=== PATIENT | male | born 1985 | race Caucasian/White ===

== ENCOUNTER 2019-09-19 11:14 | Emergency (ER) | payer BC, SELFPAY ==
--- NOTE | ~2019-09-19 | CT_ITS ---
EXAMINATION: CT abdomen pelvis wo con DATE: 09/19/2019 12:39 INDICATION: Left flank pain TECHNIQUE: Computed tomography (CT) of the abdomen and pelvis was performed without intravenous contr ast. The dose-length product (DLP) was 327.57 mGy-cm. Automated exposure control and iterative recons truction technique were employed. COMPARISON: None FINDINGS: The lung bases are clear. The heart size is normal. The gallbladder is surgically absent. T he liver, spleen, pancreas, and adrenal glands are normal. The right kidney is unremarkable. There is a 6 mm stone of the left proximal ureter which causes mild left hydronephrosis. A 3 mm nonobstructin g stone is present in the lower pole of the left kidney. There is a 1.2 cm exophytic cyst of the left kidney lower pole. No pathologically enlarged abdominal or pelvic lymph nodes are identified. There is no free intraperitoneal gas or evidence of bowel obstruction. The appendix is normal. There is a f at-containing umbilical hernia. IMPRESSION: 1. 6 mm stone in the left proximal ureter causing mild hydronephrosis. Consider KUB for treatment macho nning purposes. 2. Nonobstructing left nephrolithiasis. Reviewed, dictated and finalized at location B. IMPRESSION: 1. 6 mm stone in the left proximal ureter causing mild hydronephrosis. Consider KUB for treatment planning purposes. 2. Nonobstructing left nephrolithiasis.
--- NOTE | ~2019-09-19 | XR_ITS ---
EXAMINATION: XR abdomen/kub 1V INDICATION: Left flank pain TECHNIQUE: Supine views of the abdomen were obtained on 2 radiographs. COMPARISON: CT from today FINDINGS: A 6 mm stone projects in the proximal left ureter between the left L2 and L3 transverse pro cesses. A 4 mm stone is noted in the lower pole of the left kidney. The bowel gas pattern is normal. Cholecystectomy clips are present in the right upper quadrant. IMPRESSION: 1. 6 mm stone of the proximal left ureter. 2. Left nephrolithiasis. Reviewed, dictated and finalized at location B.
[2019-09-19 11:20] VITALS: BP 143/98; PULSE 78; RESP 12; TEMP 36.8; O2SAT 100
--- NOTE | 2019-09-19 11:29 | ED.GENADULT ---
HPI - General Adult General Chief complaint: Abdominal Pain Stated complaint: abdominal pain Time Seen by Provider: 09/19/19 11:29 Source: patient Mode of arrival: ambulatory Limitations: no limitations History of Present Illness HPI narrative: Here for evaluation of left flank pain that started this am. He states it is a constant dull pain that flares up periodically. Denies fever, dysuria, or diarrhea. Had a bowel movement this am that was harder than usual but had normal bowel movement yesterday. No new medications, no history of bowel disease or kidney stones in him or any family member. Onset (ago): hour(s) Location: left (flank) Severity: mild Quality: aching Pain Consistency: constant Relieving factors: none Exacerbating factors: none Associated symptoms: denies other symptoms Related Data Allergies Allergy/AdvReac Type Severity Reaction Status Date / Time No Known Allergies Allergy Verified 09/14/19 08:47 Review of Systems Review of Systems: All systems reviewed & are unremarkable except as noted in HPI and below PMFSH Past Medical History Medical History History of hypertension Surgical History Surgical History History of cholecystectomy Social History Social History Smoking status: Current some day smoker Alcohol intake: current Substance use type: marijuana Gender identity (if verbalized by the patient): Male Exam Const: General: no acute distress and alert Orientation/consciousness: patient oriented x3 HENMT: Head: normal to inspection Eyes: Conjunctivae: conjunctivae normal Pupils: Equal, round and reactive pupils present Resp: Effort & Inspection: normal respiratory effort Auscultation: clear to auscultation bilaterally Cardio: Rate: regular rate Rhythm: regular rhythm GI: GI Palp: Yes Soft to palpation Percussion: Yes normal to percussion Auscultation: normal bowel sounds Back/Spine/Pelvis: Back: no CVA tenderness Skin: General skin exam: normal color Rashes: no rashes Neuro: General: patient oriented x3 and moves all extremities Course Course Emergency Course: Patient CT findings are consistent with left proximal renal calculus. Spoke with Dr. Esqueda from urology he will set up a telemedicine visit with the patient and determine if he needs to come in. Patient was given a [place] and states that the pain is much more manageable. Instructed to return emergency room should he have worsening pain or inability to urinate. He was given a strainer for his urine, instructions to stay well-hydrated. Patient is fine with the plan Vital Signs Vital signs: Vital Signs Temperature 36.8 C 09/19/19 11:20 Pulse Rate 78 09/19/19 11:20 Respiratory Rate 12 09/19/19 11:20 Blood Pressure 143/98 H 09/19/19 11:20 Pulse Oximetry 100 09/19/19 11:20 Temperature 36.8 C 09/19/19 11:20 Pulse Rate 78 09/19/19 11:20 Respiratory Rate 12 09/19/19 11:20 Blood Pressure 143/98 H 09/19/19 11:20 Pulse Oximetry 100 09/19/19 11:20 Medical Decision Making Medical Records Medical records reviewed: Yes I reviewed the patient's medical records. Vital Signs Vital Signs: Vital Signs Temperature 36.8 C 09/19/19 11:20 Pulse Rate 78 09/19/19 11:20 Respiratory Rate 12 09/19/19 11:20 Blood Pressure 143/98 H 09/19/19 11:20 Pulse Oximetry 100 09/19/19 11:20 Temperature 36.8 C 09/19/19 11:20 Pulse Rate 78 09/19/19 11:20 Respiratory Rate 12 09/19/19 11:20 Blood Pressure 143/98 H 09/19/19 11:20 Pulse Oximetry 100 09/19/19 11:20 Lab Data Lab results reviewed: Yes I reviewed the patient's lab results. Discharge Plan Discharge Clinical Impression: Kidney stone on left side Patient Disposition: Home, Self-Care Condition: Stable Instructions: Antibiotic Fo
[2019-09-19 11:54] LABS: Basophils Percent Auto 0.6 % (0.2-1.2); Eosinophils Percent Auto 0.8 % (0-4.4); Hematocrit 48.3 % (42.0-52.0); Hemoglobin 16.8 g/dL (14.0-18.0); Immature Granulocyte Absolute 0.01 K/mm3 (0.00-0.031); Immature Granulocyte Percent A 0.2 % (0-0.5); Lymphocytes Absolute Auto 1.39 K/mm3 (0.9-3.2); Lymphocytes Percent Auto 26.6 % (18.3-44.2); Mean Corpuscular HGB Conc 34.8 g/dl (32-36); Mean Corpuscular Volume 86.3 fl (80-100); Monocytes Absolute Auto 0.5 K/mm3 (0.1-0.6); Monocytes Percent Auto 8.6 % (2.6-8.5); Neutrophils Absolute Auto 3.3 K/mm3 (1.3-6.7); Neutrophils Percent Auto 63.2 % (45.5-73.1); Platelet Count Result 269 k/mm3 (150-375); Red Cell Distribution Width 12.4 % (11.5-14.5); White Blood Count 5.2 K/mm3 (4.5-10.0)
[2019-09-19 12:07] LABS: Alanine Aminotransferase 48 U/L (4-50); Albumin Level 4.9 g/dL (3.5-5.1); Alkaline Phosphatase 111 U/L (38-126); Aspartate Amino Transferase 43 U/L (17-59); Bilirubin,Total 0.6 mg/dL (0.2-1.3); Blood Urea Nitrogen 14 mg/dL (9-20); Calcium 9.6 mg/dL (8.4-10.2); Carbon Dioxide 28 mmol/L (22-30); Chloride 102 mmol/L (98-107); Estimated CRCL calculation 107 ml/min; Estimated Glomerular Filt Rate > 60; Glucose 107 mg/dL (75-110); Potassium 3.9 mmol/L (3.4-5.0); Sodium 137 mmol/L (137-145)
[2019-09-19 12:42] LABS: Add Urine Microscopic? YES; Appearance Urine Clear (Clear); Bacteria Urine Trace /hpf; Bilirubin Urine Negative (Negative); Blood Urine 3+ (Negative); Color Urine Yellow (Yellow); Glucose Urine UA Negative (Negative); Ketones Urine Negative (Negative); Leukocyte Esterase Ur Negative LEU/UL (Negative); Mucus Urine Few /lpf; Nitrate Urine Negative (Negative); Protein Urine 1+ mg/dL (Negative); RBC Urine >75 /hpf (0-2); Specific Grav Ur 1.023 (1.001-1.035); Urobilinogen Urine Negative mg/dL (<2.0)
[2019-09-19] MEDS: SODIUM CHLORIDE 0.9% IV 1,000 ML 999 ML IV CONT (13:09)
[2019-09-19] MEDS: TAMSULOSIN HCL 0.4 MG CAPSULE PO (13:27)
[2019-09-19 15:13] VITALS: BP 140/72; PULSE 70; RESP 16; O2SAT 99
== END 2019-09-19 15:31 | disposition home or self-care (01) ==
PROVIDERS: Physician Assistant; Emergency Provider Emergency Medicine; PCP Family Medicine
DX: N13.2 Hydronephrosis with renal and ureteral calculous obstruction (principal); I10 Essential (primary) hypertension; Z87.442 Personal history of urinary calculi; F17.200 Nicotine dependence, unspecified, uncomplicated
CPT/HCPCS: 36415; 74018; 74176; 80053; 81001; 85025; 96360; 99284; A9270; J7030

== ENCOUNTER 2019-09-23 00:32 | Day surgery (SDC) | payer BC, SELFPAY ==
--- NOTE | 2019-09-21 12:58 | PM.HPGS ---
History of Present Illness History of Present Illness Consent: Risks, benefits, and alternatives have been discussed and questions answered. Patient agrees to proceed with procedure. Chief complaint: Left Ureteral Stone Narrative: Sheldon Carlisle is a 33 year old male previously unknown to our practice who was in the emergency room earlier this week with acute left renal colic. CT imaging revealed a calcified, obstructing 6 millimeter left proximal ureteral stone. Patient has had nausea and vomiting but denies fevers chills or gross hematuria. After discussion of therapeutic options including, but additional interval to pass this stone, endoscopic manipulation versus ESWL, he has elected for the latter. He is aware of the risk of this procedure including, but not limited to, failure to completely fractured the stone with need for additional procedures, ureteral or renal injury. Review of Systems Constitutional: Constitutional: Denies chills, Denies fatigue, Denies fever(s) and Denies headache(s) Eyes: Eyes: Denies blurry vision ENT: Denies vertigo, Denies dizziness, Denies headache(s) and Denies sore throat Cardiovascular: Cardiovascular: Denies chest pain, Denies syncope, Denies lightheadedness, Denies palpitations, Denies dyspnea and Denies dyspnea on exertion Respiratory: Respiratory: Denies hemoptysis, Denies dyspnea and Denies dyspnea on exertion Gastrointestinal: Gastrointestinal: Denies melena, Denies bloating, Denies hematochezia, Denies change in bowel habits, Denies change in stool character, Denies constipation, Denies diarrhea and Denies vomiting Genitourinary: Genitourinary: Denies hematuria, Denies dysuria, Denies testicular pain, Denies urinary frequency, Denies urinary hesitancy and Denies urinary urgency Integumentary/Breasts: Skin/Breast: Denies pruritus, Denies lesions and Denies rash Neurologic: Denies confusion, Denies vertigo, Denies dizziness, Denies syncope and Denies headache(s) Psychiatric: Psychiatric: Denies anxiety, Denies change in appetite and Denies confusion Endocrine: Endocrine: Denies fatigue and Denies palpitations PMF Past Medical History Medical History History of hypertension Surgical History Surgical History History of cholecystectomy Social History Social History Smoking status: Current some day smoker Alcohol intake: current Substance use type: marijuana Gender identity (if verbalized by the patient): Male Meds Home Medications and Allergies Home Medications Medication Instructions Recorded Confirmed Type lorazepam 0.5 mg tablet 0.5 mg PO TID PRN #14 tablet 08/16/19 08/16/19 Rx omeprazole 40 mg capsule,delayed 40 mg PO DAILY #90 cap 08/16/19 08/16/19 Rx release hydrocodone-acetaminophen [[place]] 1 tablet PO Q4H PRN #10 tablet 09/19/19 Rx tamsulosin [Flomax] 0.4 mg PO DAILY #10 cap 09/19/19 Rx Allergies Allergy/AdvReac Type Severity Reaction Status Date / Time No Known Allergies Allergy Verified 09/14/19 08:47 Exam Const: General: healthy appearing, comfortable, no acute distress and well developed; No confusion Nutritional Appearance: well nourished Orientation/consciousness: patient oriented x3 and No confusion HENMT: Head: normocephalic and atraumatic Ears: external ears normal Face and sinus: normal facial exam Mouth: Yes lip normal Teeth and gingiva: dentition normal Eyes: General: appearance normal, both eyes and all related structures Alignment and Position: alignment normal Eyelids: eyelids normal Cornea: corneas normal Pupils: Equal, round and reactive pupils present EOM: EOMs intact bilaterally Neck: Neck: normal visual inspection, full ROM and no JVD Chest: Chest palpation & inspection: normal inspection of the chest Resp: Effort & Inspection: normal res
[2019-09-22 10:15] VITALS: BMI 35.3
--- NOTE | ~2019-09-23 | XR_ITS ---
EXAMINATION: XR abdomen/kub 1V INDICATION: Left sided urinary tract calculi TECHNIQUE: Supine views of the abdomen were obtained on 2 radiographs. COMPARISON: 09/19/2019 FINDINGS: A 7 mm stone projects in the left proximal ureter between the left L2 and L3 transverse pro cesses. There is a 4 mm stone of the left kidney lower pole. The bowel gas pattern is normal. The gal lbladder is surgically absent. IMPRESSION: 1. Stable 7 mm stone in the left proximal ureter. 2. Left nephrolithiasis. Reviewed, dictated and finalized at location B.
--- NOTE | 2019-09-23 10:19 | WPDHPUPDATE1 ---
History and Physical Update Update Date/Time: 09/23/19 10:19 History and Physical has been reviewed, including an updated exam of the patient. There are NO changes in the patient's condition. Risks, benefits, and alternatives have been discussed and questions answered. Patient agrees to proceed with procedure.
[2019-09-23 10:20] VITALS: BP 130/81; PULSE 85; RESP 12; TEMP 36.4; O2SAT 98
[2019-09-23] MEDS: LACTATED RINGERS 1,000 ML 30 ML IV CONT (10:40)
[2019-09-23 10:56] LABS: Partial Thromboplastin Time 25.2 SECONDS (22.3-36.8)
--- NOTE | 2019-09-23 11:42 | P.PNAN_ITS ---
Anes - Initial Pre Proc Eval Procedure: Operation Date: 09/23/19 11:30 Proposed Procedures p Left Ureteral Extracorporeal Shock Wave Lithotripsy - Urban Esqueda MD Date/Time: 09/23/19 11:42 Surgeon: Urban Esqueda MD Pre Op Diagnosis: Left Ureteral Stone Patient Data Age: 33 Gender: M Height: 5 ft 7 in Weight: 102.3 kg Last Vital Signs Temp 97.5 F L 09/23/19 10:20 Pulse 85 09/23/19 10:20 Resp 12 09/23/19 10:20 BP 130/81 09/23/19 10:20 Pulse Ox 98 09/23/19 10:20 Allergies Allergy/AdvReac Type Severity Reaction Status Date / Time No Known Allergies Allergy Verified 09/22/19 10:14 Home Medications Medication Instructions Recorded Confirmed Type lorazepam 0.5 mg tablet 0.5 mg PO TID PRN #14 tablet 08/16/19 09/22/19 Rx omeprazole 40 mg capsule,delayed 40 mg PO DAILY #90 cap 08/16/19 09/22/19 Rx release hydrocodone-acetaminophen [[place]] 1 tablet PO Q4H PRN #10 tablet 09/19/19 09/22/19 Rx tamsulosin [Flomax] 0.4 mg PO DAILY #10 cap 09/19/19 09/22/19 Rx Laboratory Tests 09/23/19 10:27 PT 13.0 Seconds Seconds (11.1-14.7) INR 1.0 APTT 25.2 SECONDS SECONDS (22.3-36.8) Patient hx anesthesia problems: none Family hx anesthesia problems: none COUNTS INCLUDE 234 BEDS AT THE [facility] Past Medical History Medical History (Updated 09/23/19 @ 11:39 by Zack Contreras MD) Anxiety History of hypertension Surgical History Surgical History History of cholecystectomy Social History Social History Smoking status: Current some day smoker Alcohol intake: current Substance use type: marijuana Gender identity (if verbalized by the patient): Male Anes - Eval Final PreProcedure Day of Procedure 09/23/19 11:42 Patient weight: obese Heart: regular rate and rhythm Lungs: clear to auscultation Airway: Mallampati scale class II Neurological: alert and oriented Last oral intake: >/= 8 hours ASA classification: II Emergent: no Anesthetic plan: proceed Anesthesia type and monitoring: general LMA and standard monitoring Informed Consent: The patient's anesthetic plan and its attendant risks and benefits were discussed with the patient/family/POA. Questions were solicited and answers provided to the satisfaction of the patient/family/POA.
--- NOTE | 2019-09-23 12:13 | WPDHPUPDATE1 ---
History and Physical Update Update Date/Time: 09/23/19 12:13 History and Physical has been reviewed, including an updated exam of the patient. There are NO changes in the patient's condition. Risks, benefits, and alternatives have been discussed and questions answered. Patient agrees to proceed with procedure.
--- NOTE | 2019-09-23 13:31 | PM.PROC ---
Procedure Note - Detailed Date of procedure: 09/23/19 Pre-op diagnosis: Left Ureteral Stone Post-op diagnosis: same Procedure performed: Left ESWL Description of procedure: The patient was brought to the operative suite where he was placed in the supine position on the [place]ornier lithotripsy table. The focal point of the lithotripter was placed at a 7mm left mid-ureteral calculus. A total of 3000 shocks were delivered at a power setting of 8. There appeared to be good fragmentation of the stone. The patient tolerated the procedure well and was taken to the recovery room in good condition. Anesthesia: GLMA Surgeon: Munir Artis MD Estimated blood loss (mL): 0 Drains: No Packing: No Pathology: none sent Complications: No immediate complications Condition: stable Disposition: PACU
[2019-09-23 14:10] VITALS: BP 130/77; PULSE 97; RESP 14; TEMP 36.4; O2SAT 98
[2019-09-23 14:25] VITALS: BP 122/74; PULSE 84; RESP 14; O2SAT 100
--- NOTE | 2019-09-23 14:34 | SUR.PHASEI ---
1430; PT C/O ANXIETY AND A HEADACHE. FENTANYL GIVEN IV
[2019-09-23 14:40] VITALS: BP 126/76; PULSE 84; RESP 16; O2SAT 95
--- NOTE | 2019-09-23 14:58 | SUR.PHASEI ---
1458; PT AWAKE AND ALERT. TALKATIVE. STATES HEADACHE AND ANXIETY MUCH BETTER NOW. READY TO GO HOME.
[2019-09-23 15:00] VITALS: BP 127/80; PULSE 84; RESP 16
[2019-09-23 15:30] VITALS: BP 122/75; PULSE 78; RESP 14
== END 2019-09-23 15:42 | disposition home or self-care (01) ==
PROVIDERS: PCP Family Medicine; Visit Provider Urology
PROC: (CPT 50590; principal; 2019-09-23 11:30)
DX: N20.1 Calculus of ureter (principal); I10 Essential (primary) hypertension; F12.90 Cannabis use, unspecified, uncomplicated; F41.9 Anxiety disorder, unspecified
CPT/HCPCS: 50590; 36415; 74018; 85610; 85730; J1100; J2590; J2704; J3010; J7120

== ENCOUNTER 2019-10-18 10:21 | Outpatient (CLI) | payer BC, SELFPAY ==
--- NOTE | ~2019-10-18 | XR_ITS ---
XR abdomen/kub 1V DATE: 10/18/2019 10:35 INDICATION: Left ureteral stone TECHNIQUE: AP projection, 2 views COMPARISON: 09/23/2019 KUB FINDINGS: Previously reported 7 mm calcified stone of proximal left ureter noted on 09/23/2019 is no l onger evident. There is a faint calcification overlying the lower pole of the left kidney. Surgical clips overlie the right upper quadrant. The psoas shadows are intact. No visceromegaly is evident. The bowel gas pattern is unremarkable, wit hout evidence of obstruction. IMPRESSION: Previously reported 7 mm calcified calculus at the proximal left ureter is no longer iden tified Reviewed, dictated and finalized at Location A. Reviewed, dictated and finalized at location A. IMPRESSION: Previously reported 7 mm calcified calculus at the proximal left ur eter is no longer identified
== END 2019-10-18 10:22 | disposition home or self-care (01) ==
LOC: ANHIMG 10:25
PROVIDERS: PCP Family Medicine; Visit Provider Urology
DX: N20.1 Calculus of ureter (principal)
CPT/HCPCS: 74018

== ENCOUNTER 2020-04-26 09:13 | Outpatient (CLI) | payer BC, SELFPAY ==
--- NOTE | ~2020-04-26 | XR_ITS ---
EXAMINATION: XR abdomen/kub 1V DATE: 04/26/2020 09:28 INDICATION: Left kidney stone. TECHNIQUE: A supine view of the abdomen on 2 radiographs was obtained. COMPARISON: CT abdomen and pelvis 09/19/2019 FINDINGS: There are no dilated loops of bowel. Surgical clips in the right upper quadrant are likely from cholecystectomy. There is no visible urolithiasis. IMPRESSION: 1. No visible urolithiasis. Reviewed, dictated and finalized at location A. IMPRESSION: 1. No visible urolithiasis.
== END 2020-04-26 09:14 | disposition home or self-care (01) ==
PROVIDERS: PCP Family Medicine; Visit Provider Urology
DX: N20.0 Calculus of kidney (principal)
CPT/HCPCS: 74018

== ENCOUNTER 2020-09-04 13:12 | Outpatient (CLI) | payer BC, SELFPAY ==
--- NOTE | ~2020-09-04 | XR_ITS ---
EXAMINATION: XR toe 1st RT min 2V INDICATION: Right first toe pain TECHNIQUE: Four views of the right first toe are obtained. COMPARISON: None available FINDINGS: There is no fracture, dislocation, or subluxation. There is mild osteoarthritis at the firs t metatarsophalangeal joint. The soft tissues are unremarkable. The remaining joint spaces are mainta ined. IMPRESSION: 1. Mild osteoarthritis at the first metatarsophalangeal joint. Reviewed, dictated and finalized at location A. E TOUR
[2020-09-04 14:33] LABS: LDL Cholesterol Direct 74 mg/dL
[2020-09-04 14:34] LABS: Alanine Aminotransferase 31 U/L (4-50); Albumin Level 4.5 g/dL (3.5-5.1); Alkaline Phosphatase 74 U/L (38-126); Anion Gap 5 mmol/L (8-16); Aspartate Amino Transferase 30 U/L (17-59); Bilirubin,Total 0.3 mg/dL (0.2-1.3); Blood Urea Nitrogen 19 mg/dL (9-20); Calcium 9.1 mg/dL (8.4-10.2); Carbon Dioxide 30 mmol/L (22-30); Chloride 104 mmol/L (98-107); Cholesterol 141 mg/dL (0-200); Estimated Glomerular Filt Rate > 60; Glucose 90 mg/dL (75-110); HDL Direct 36 mg/dL; Potassium 4.1 mmol/L (3.4-5.0); Sodium 139 mmol/L (137-145); Uric Acid 6.7 mg/dL (3.5-8.5)
[2020-09-04 14:46] LABS: Triglycerides 214 mg/dL (<150)
[2020-09-04 15:16] LABS: Free T4 Free Thyroxine 0.88 ng/mL (0.78-2.19)
== END 2020-09-04 13:13 | disposition home or self-care (01) ==
LOC: ANHIMG 13:16
PROVIDERS: PCP Family Medicine; Visit Provider Physician Assistant Medical
DX: M19.071 Primary osteoarthritis, right ankle and foot (principal); E66.9 Obesity, unspecified; F41.1 Generalized anxiety disorder
CPT/HCPCS: 36415; 73660; 80053; 80061; 84439; 84443; 84550